=== PATIENT | female | born 1970 | race Caucasian/White ===

== ENCOUNTER → 2017-10-11 12:02 | Outpatient (CLI) | payer OTHER, SELFPAY ==
--- NOTE | 2017-10-10 14:40 | FLU_PTH ---
PATIENT: BALWINDER GERBER LOC: [facility] U#:[id number] AGE/SX: 54/F ROOM: RE10/11/[address]: Dr. Ricarda Acuña MD : 1970 BED: DIS: SPEC #: [id number] RECD: 10/11/17 11:56 STATUS: JADE RESanjuana #: [id number] JR: 10/10/17 14:[address]: Ricarda Acuña DEPT: CYTOLOGY RECD BY: Leonard Colon ENTERED: 10/12/17 04:54 SP TYPE: Fluid OTHR DR: Dr. Mohan Dumont MD Tissues: A - Thyroid gland, NOS B - Thyroid gland, NOS Procedures: Pap Stain (control) Special Stain Group II Surgery Specimen Level IV Cell Block Cytospin Fluid Cytology Other HEADER OPERATION: Ultrasound guided fine needle aspiration, left thyroid PRE-OP DIAGNOSIS: Left thyroid nodule TISSUE SUBMITTED: A. FNA left thyroid, fluid, B. FNA left thyroid, slides DIAGNOSIS CYTOLOGY A. Left thyroid nodule, ultrasound guided FNA (Cytospin and cell block): Consistent with benign colloid nodule. B. Left thyroid nodule, ultrasound FNA (Smears): Consistent with benign colloid nodule. See cytology study and comment. BOYD:rodolfo 10/12/17 TC:5 COMMENT Immediate cytologic evaluation to determine adequacy is not applicable. Correlation with clinical, radiologic findings and appropriate followup are necessary. CYTOLOGY STUDY Slides are reviewed. A. Specimen consists of benign follicular cells, colloid and macrophages. B. The specimen is adequate for evaluation. Specimen consists of abundant colloid, benign follicular cells and macrophages. CYTOLOGY GROSS A. Received is 95 ml of cloudy suman fluid labeled with the patient's name and and designated per the requisition as FNA left thyroid. Submitted for cytology preparation including cell block. B. Received are 8 smears labeled with the patient's name and designated per the requisition as FNA left thyroid. Submitted for staining. /RB:kristen 10/11/17 TC: 5 CPT: 57380, 56489, 56297
== END ==
PROVIDERS: Family Provider Family Medicine; PCP Family Medicine; Visit Provider Surgery
DX: E04.1 Nontoxic single thyroid nodule (principal)
CPT/HCPCS: 88108; 88161; 88305; 88313

== ENCOUNTER 2018-09-04 14:35 | Observation (INO) | payer OTHER, SELFPAY ==
--- NOTE | 2018-08-23 19:04 | HP.PCM_ITS ---
History and Physical Date of Admission: 09/04/18 Mariia Gómez 1970 ? REFERRING PHYSICIAN: Mohan Dumont MD ? CHIEF COMPLAINT: Consult (New patient - referred by Dr. Borges for thyroid nodule) ? HPI: The patient is a 47 y/o WF who presents with increasing size of thyroid nodule. Had been seen previously by me, noted to have a 3.4 cm left thyroid nodule for which FNA was done revealing benign colloid nodule. She now is also noting globus sensation and thyroid nodule is visibly larger. US reveals that the left thyroid nodule has increased in size by about 12%. In the past, had normal TSH, microsomal antibody normal, T3/T4 normal. ? ? PAST MEDICAL HISTORY ? Anxiety ? ? Other abnormal heart sounds 12/26/02 Murmur ? Other and nonspecific abnormal cytological, histological, immunological and DNA test findings 01/05/03 ? 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 Skin cancer, basal cell 2012 ? PAST SURGICAL HISTORY ? DELIVERY ONLY ? 12/26/02 C- section, low cervical ? EGD ? 07/23/14 ? EGD W/O BRSH SPECIMEN W/BX ? 04/13/07 ? LAPAROSCOPIC CHOLEYCYSTECTOMY ? 08/13/14 ? PAST SURGICAL HISTORY OF ? 12/20 wisdom teeth ? PAST SURGICAL HISTORY OF ? 2012 removal basel cell cancer , abdomen ? ? Current Outpatient Prescriptions: LORazepam (ATIVAN) 0.5 mg tab Take by mouth as needed. acyclovir (ZOVIRAX) 400 mg tablet 1 po tid X 5 days multivitamin tablet Take 1 tablet by mouth once daily. Cetirizine (ZYRTEC) 10 mg cap Take by mouth. ? ? ALLERGIES: Tylenol [Acetaminophen]; Paxil [Paroxetine Hcl]; Prilosec [Omeprazole Magnesium]; Eryc [Erythromycin]; Penicillins ? 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 ? FAMILY HISTORY ? Cancer Mother ?? cervical/Skin ? Aneurysm Mother ? ? melanoma [OTHER] Mother ? ? Coronary Artery Disease Father ? ? Hypertension Father ? ? Cancer Maternal Grandmother ? stomach- with this ? Heart Paternal Grandfather ?? chf ? Heart Maternal Grandfather ? chf ? Hypertension Brother ? ? Cancer Brother Melanoma ? ? REVIEW OF SYSTEMS: General - denies fevers Cardiovascular - denies chest pain Pulmonary - denies shortness of breath, denies coughing up blood Gastrointestinal - denies abdominal pain, denies emesis of blood Neurological - denies seizures, tingling of right upper extremity occasionally Genitourinary - denies blood in urine Hematological - denies spontaneous/prolonged bleeding Skin - denies nonhealing skin wounds Musculoskeletal - denies chronic joint/back pain Endocrine - denies diabetes Psychological ? denies hallucinations ? PHYSICAL EXAMINATION: General: The patient is 46 year old female, well nourished, well hydrated in no acute distress. The patient is oriented to time, place, and person. VITALS: Blood pressure 118/64, pulse 72, resp. rate 16, weight 70.9 kg (156 lb 6.4 oz). Body mass index is 24.84 kg/m?. Head ? Normocephalic. EOM intact with sclera clear and no icterus noted. Mouth with mucus membranes moist. Neck - supple with no jugular venous distention noted. Trachea is midline. No carotid bruits noted. Left thyroid lobe larger than right with noticeable thyroid nodule Lungs ? clear to auscultation.. Normal breath sounds. No rales/rhonchi/wheezing noted. No labored breathing noted, such as retractions. Heart ? normal S1 and S2 auscultated. No rubs/clicks/murmurs noted. Regular rate. Abdomen ? soft and benign. Normal bowel sounds. No abdominal bruits noted. No distention or tympany noted. Extremities ? no calf tenderness noted. No pitting edema noted. Skin ? normal skin integrity. Lymph ? no cervical adenopathy detected, no supraclavicular adenopathy detected, no axillary adenopathy detected Neurological ? gait normal, no focal deficits noted. Psych ? calm and appropriate ? ? IMPRESSION: thyroid nodule - left dominant, globus symptoms ? PLAN: I have discussed the above with the patient. I have discussed options of surgery, I have described the surgery to the patient in layman?s terms. I have counseled the patient as to the risks of surgery, including but not limited to: infection, bleeding, seroma, scar tissue, cosmetic deformity, injury to any blood vessels/nerves, injury to the recurrent laryngeal nerves and their sequelae, injury to the parathyroid glands and their sequelae, bleeding requiring further surgery, need for thyroid hormonal supplementation - life long, etc. ? the patient understands. I have offered options of the following: - US guided FNA of left thyroid nodule - thyroid lobectomy - continued observation Patient wishes to undergo left thyroidectomy. Will schedule for this procedure at [facility] as per patient's wishes.
[2018-08-28 13:15] VITALS: BP 118/66; PULSE 73; RESP 16; TEMP 37.4; O2SAT 99; BMI 25.4
[2018-09-04] VITALS (9 sets, daily range): BP systolic 110–141; BP diastolic 57–71; PULSE 81–106; RESP 14–18; TEMP 36.7–37.2; O2SAT 94–99; BMI 25.4; BMI 25.3
--- NOTE | 2018-09-04 | THYROID_PTH ---
PATIENT: BALWINDER GERBER LOC: [facility] U#:[id number] AGE/SX: 47/F ROOM: MS318 RE09/04/[address]: Dr. Ricarda Acuña MD : 1970 BED: 1 DIS: 09/05/2018 SPEC #: [id number] RECD: 09/05/18 09:30 STATUS: JADE REQ #: [id number] JR: 09/04/18 00:[address]: Ricarda Acuña DEPT: SURGICAL PATHOLOGY RECD BY: Damien Moore ENTERED: 09/05/18 10:30 SP TYPE: THYROID OTHR DR: Dr. Mohan Dumont MD Tissues: Thyroid gland, NOS Procedures: Surgery Specimen Level V HEADER OPERATION: Left thyroid lobectomy and isthmusectomy PRE-OP DIAGNOSIS: Left thyroid nodule TISSUE SUBMITTED: Left thyroid and isthmus MICROSCOPIC DIAGNOSIS Left thyroid and isthmus, lobectomy and isthmusectomy: Colloid nodules with focal adenomatous and cystic change. Mild chronic inflammation. AM:jorge 09/06/18 MICROSCOPIC DESCRIPTION Slides are reviewed. GROSS DESCRIPTION Received in fixative is one container labeled with the patient's name and designated left thyroid and isthmus. The specimen consists of three rubbery fragments of light colmenares soft tissue ranging in size from 1.5 to 4 cm. No parathyroid glands are grossly identified. The fragments in aggregate weigh 7.9 gm. No orientation is provided. The two smaller fragments are inked in blue ink and green ink respectively and the largest fragment is inked in black ink. Serial sections of the smaller fragments reveal homogenous reddish-colmenares cut surfaces. No nodules or mass lesions are identified. Serial sections of the largest fragment reveal a cyst measuring 2 x 1 cm. The cyst is lined by smooth, glistening light colmenares tissue. No cyst contents are identified. The uninvolved parenchyma is reddish-colmenares in color and free of nodules or masses. The specimen is totally submitted in seven cassettes as follows: 1 - smaller fragments of tissue, 2-7 - largest fragment. / AM:jorge 09/05/18 TC:1 CPT: 61734 ADDENDUM ADDENDUM 09/21/2018 10:10 ADDENDUM 09/21/2018 10:10 ADDENDUM 09/21/2018 10:10 ADDENDUM 09/21/2018 10:10 ADDENDUM 09/21/2018 10:10 Benign parathyroid tissue is present, focally. / AM:jorge 09/21/18
[2018-09-04 14:26] LABS: Internal QC Validated? YES +Cl - CLEAR BKGD; Pregnancy, Urine Negative Negative
--- NOTE | 2018-09-04 16:53 | OP.PCM_ITS ---
Report of Operation Date of Procedure: 09/04/18 Pre-Operative Diagnosis: globus symptoms, left thyroid nodule Post-Operative Diagnosis: globus symptoms, left thyroid nodule Surgery/Procedure Performed:: Left thyroid lobectomy and isthmusectomy Description of Surgical Findings:: multinodular goiter - left thyroid microfilming document preparer: Darrel Jackson Type of Anesthesia:: General Anesthesiologist: Prashanth Cagle Specimen's removed: left thyroid and isthmus Drains: none Estimated Blood Loss (mL): < 10 Fluids Replaced: 1000 ml RL Description of Procedure: After informed consent was obtained, the patient was brought to the Operating Room. Appropriate time out protocol was followed. She was then placed in the supine position. She was then placed under GETA. The patient was then positioned with arms tucked and appropriate padding, with neck extension, and in the slightly reverse Trendelenburg position. The neck and upper chest were then prepped with a sterile surgical skin preparation and appropriate sterile surgical drapes were placed. The ultrasound was used to localize the left thyroid nodule so that an appopriate thyroid incision can be made. The skin and subcutaneous tissues were infiltrated with local anesthetic. The landmarks were identified and a low cervical collar incision was made with a 15 blade scalpel and carried down to the subcutaneous tissues using Bovie in the electrocautery mode. The platysma was divided along the incision and then flaps were created superiorly to the cricoid cartilage level and inferiorly to the sternal notch. The fascia overlying the strap muscles was then divided along the midline. The left thyroid gland was thus approached. The plane between the thyroid gland anterior and the strap muscles posteriorly was then bluntly dissected. There was some filmy adhesions around the thyroid gland. Dissection continued layer by layer to identify the inferior pole vessels of the left thyroid gland. The vessels were ligated with ligaclips and then transected. Of note, the left thyroid gland was very much enlarged and was nodular. The middle thyroid vein was identified and also ligated with ligaclips and then transected. The inferior pole was then bluntly dissected free and the surrounding investiture. The left lobe of the thyroid thus could be retracted medially. Attention was then directed to the superior pole of the thyroid gland. The superior pole vessels were then ligated adjacent to the thyroid lobe in order to prevent damage to the superior laryngeal nerve. The parathyroid gland was identified and care was taken to preserve the blood supply to the parathyroid gland. The thyroid gland was appearing ischemic and shrunk in size and the gland could be further retracted medially. The recurrent laryngeal nerve was identified. Because of the size of the thyroid gland, the nerve was almost embedded within it and careful dissection was required to prevent any injury to it. It is of note that the thyroid appeared to have slight inflammation consistent with thyroiditis type presentation. Also was noted that the surrounding tissues appeared to be more adherent to the thyroid gland than usual. Once the thyroid tissue was free from the attachments to the trachea wit h the recurrent laryngeal nerve protected and dissection continued. There was a small tongue of thyroid tissue extended superior along the trachea and this was resected en lila with the left thyroid gland. The thyroid gland was carefully examined, no active bleeding was noted, Surgicel was used for hemostasis. The fascia of the strap muscles was then reapproximated along the midline with running vicryl suture with a small opening made inferiorly. The platysma muscle was then reapproximated in a transverse fashion using interrupted 2-0 Vicryl suture. The skin incision was then reapproximated using 4-0 Monocryl in a running subcuticular fashion. The skin closure was reinforced with Dermibond and a sterile dressing was applied. She was brought to the Recovery Room in stable condition. - Complications none noted - Admit VTE Documentation VTE Present on Admission: Yes VTE Mechan Device Prophylaxis: SCD's
[2018-09-04] MEDS: 0.9% NaCl Peripheral Flush Adult/Peds IV (19:47)
[2018-09-04] MEDS: Ibuprofen 600 MG Tablet PO (19:47)
[2018-09-04] MEDS: LORazepam 0.5 MG Tablet PO (22:00)
[2018-09-05 02:41] VITALS: BP 111/53; PULSE 106; RESP 16; TEMP 37.3; O2SAT 97
[2018-09-05] MEDS: Ibuprofen 600 MG Tablet PO ×2 (02:42→09:32)
[2018-09-05] MEDS: Lactated Ringers 1,000 ML 75 ML IV (02:46)
[2018-09-05 03:03] VITALS: PULSE 106
[2018-09-05 06:57] LABS: Calcium,Total 8.1 mg/dL (8.5-10.1)
--- NOTE | 2018-09-05 07:10 | PCM.DC.GS ---
Discharge Diet: No Restrictions Discharge Activity: Return to Normal Activity, May not drive while taking narcotic pain medications. Call your doctor if your incision/area has: Continuous Slow Oozing, Foul Smelling Discharge Call your doctor if you observe: Fever of 101 or Higher Additional Dressing/Incision Instructions:: Leave dressing in place. Do not get wet Additional Instructions: take TUMS with calcium - two tablets twice a day (four total per day) until further notice Allergies/Adverse Reactions: Allergies acetaminophen [From Tylenol] Allergy (Verified 09/04/18 12:24) Anaphylaxis erythromycin base [Erythromycin Base] Allergy (Verified 09/04/18 12:24) Rash paroxetine HCl [From Paxil] Allergy (Verified 09/04/18 12:24) Other Penicillins Allergy (Verified 09/04/18 12:24) Rash Medications to take at Discharge Cetirizine HCl [Zyrtec] 5 mg PO DAILY 09/02/13 Multivitamin with Iron [Multivitamins with Iron] 1 each PO DAILY 09/02/13 Daily Defense Cpasule 1 cap PO DAILY 08/28/18 L.acidoph,Paracasei, B.lactis [Probiotic] 1 each PO DAILY 08/28/18 Lorazepam [Ativan] 0.5 mg PO BID PRN PRN 08/28/18 Zyflamend Whole Body Cap 1 cap PO DAILY 08/28/18 Oxycodone [Oxyir] 5 mg PO Q8H PRN PRN 2 Days #5 tab 09/05/18 The following prescriptions were given: Oxycodone [Oxyir] 5 mg PO Q8H PRN PRN 2 Days #5 tab PRN Reason: Mod-Severe Pain (4-01/25) Primary Care Physician: Mohan Dumont MD [Primary Care Provider] - Test Results: Test results from this visit will be discussed in further detail at your follow-up appointment, if applicable. Please Follow Up With: Ricarda Acuña MD - call When: to be seen on Tuesday, please call for time, thank you
--- NOTE | 2018-09-05 07:13 | DCINST_ITS ---
Discharge Diet: No Restrictions Discharge Activity: Return to Normal Activity, May not drive while taking narcotic pain medications. Call your doctor if your incision/area has: Continuous Slow Oozing, Foul Smelling Discharge Call your doctor if you observe: Fever of 101 or Higher Additional Dressing/Incision Instructions:: Leave dressing in place. Do not get wet Additional Instructions: take TUMS with calcium - two tablets twice a day (four total per day) until further notice Allergies/Adverse Reactions: Allergies acetaminophen [From Tylenol] Allergy (Verified 09/04/18 12:24) Anaphylaxis erythromycin base [Erythromycin Base] Allergy (Verified 09/04/18 12:24) Rash paroxetine HCl [From Paxil] Allergy (Verified 09/04/18 12:24) Other Penicillins Allergy (Verified 09/04/18 12:24) Rash Medications to take at Discharge Cetirizine HCl [Zyrtec] 5 mg PO DAILY 09/02/13 Multivitamin with Iron [Multivitamins with Iron] 1 each PO DAILY 09/02/13 Daily Defense Cpasule 1 cap PO DAILY 08/28/18 L.acidoph,Paracasei, B.lactis [Probiotic] 1 each PO DAILY 08/28/18 Lorazepam [Ativan] 0.5 mg PO BID PRN PRN 08/28/18 Zyflamend Whole Body Cap 1 cap PO DAILY 08/28/18 Oxycodone [Oxyir] 5 mg PO Q8H PRN PRN 2 Days #5 tab 09/05/18 The following prescriptions were given: Oxycodone [Oxyir] 5 mg PO Q8H PRN PRN 2 Days #5 tab PRN Reason: Mod-Severe Pain (4-01/25) Primary Care Physician: Mohan Dumont MD [Primary Care Provider] - Test Results: Test results from this visit will be discussed in further detail at your follow- up appointment, if applicable. Please Follow Up With: Ricarda Acuña MD - call When: to be seen on Tuesday, please call for time, thank you
[2018-09-05 07:50] VITALS: BP 108/69; PULSE 80; RESP 16; TEMP 37.5; O2SAT 96
[2018-09-05 07:55] VITALS: PULSE 80
--- NOTE | 2018-09-05 08:54 | PCM.PN.SRG ---
Subjective: Patient feeling well this morning, complains of sore throat, denies swallowing problems, able to phonate all vowel sounds normally, does not feel or sound hoarse - Physical Exam General: Alert, Oriented x3 HEENT: Atraumatic Oral: Moist Mucosa Neck: Supple, - - dressing intact - no seepage noted Lungs: Normal air movement Vital Signs Temp Pulse Resp BP Pulse Ox 99.5 F H 80 16 108/69 96 09/05/18 07:50 09/05/18 07:50 09/05/18 07:50 09/05/18 07:50 09/05/18 07:50 Oxygen Delivery Method Room Air Weight: 71.214 kg Body Mass Index (BMI) 25.3 Intake and Output for Last 24 Hours 09/03/18 09/04/18 09/05/18 23:59 23:59 23:59 Intake Total 1400 / 1400 1855 / 1855 Output Total 550 / 550 Balance 1400 / 1400 1305 / 1305 Laboratory Tests Past 24 Hrs 09/04/18 09/05/18 14:21 06:24 Calcium 8.1 L Urine Test Negative Medical Necessity - Tobacco Use Smoking Status: Never smoker Assessment/Plan POD#1 s/p left thyroid lobectomy and isthmusectomy Plan: d/c to home low calcium 8.1, will have patient start taking TUMS with calcium
[2018-09-05 11:07] VITALS: BP 119/70; PULSE 83; RESP 18; TEMP 37.8; O2SAT 95
== END 2018-09-05 11:52 | disposition home or self-care (01) ==
LOC: MS3 09-05 08:25
PROVIDERS: Anesthesiology; Admitting Provider Surgery; Family Provider Family Medicine; PCP Family Medicine; Referring Provider Surgery; Visit Provider Surgery
PROC: (CPT 60225; principal; 2018-09-04 13:15)
DX: E04.2 Nontoxic multinodular goiter (principal); F41.9 Anxiety disorder, unspecified; Z79.899 Other long term (current) drug therapy; F45.8 Other somatoform disorders
CPT/HCPCS: 00320; 60225; 36415; 81025; 82310; 88307; 96360; 96361; 99218; J7120; A4216; G0378; G0379; J2405

== ENCOUNTER → 2019-03-01 17:09 | Outpatient (CLI) | payer OTHER, SELFPAY ==
[2018-09-04 17:52] VITALS: BMI 25.3
== END ==
PROVIDERS: Family Provider Family Medicine; PCP Family Medicine; Referring Provider Chiropractor; Visit Provider Chiropractor
DX: M54.12 Radiculopathy, cervical region (principal); M99.01 Segmental and somatic dysfunction of cervical region
CPT/HCPCS: 72040

== ENCOUNTER → 2019-04-16 07:38 | Outpatient (CLI) | payer OTHER, SELFPAY ==
[2019-03-08 10:36] VITALS: BMI 25.0
[2019-04-16 10:33] LABS: Anion Gap 5 (5-15); BUN 10 mg/dL (7-18); BUN/Creat Ratio 9.1 RATIO (10-20); Calcium,Total 8.4 mg/dL (8.5-10.1); Chloride 113 mmol/L (98-107); EST Glomerular Filtration Rate 57 mL/min (>60); Est Glom Filt Rate - Afr Amer 68 mL/min (>60); Glucose 93 mg/dL (74-106); Potassium 5.1 mmol/L (3.5-5.1); Sodium Level 141 mmol/L (136-145)
[2019-04-23 14:34] LABS: Aldosterone, Serum 11.8 ng/dL (0.0-30.0); Renin, Plasma < 0.167 ng/mL/hr (0.167-5.380)
== END ==
PROVIDERS: Family Provider Family Medicine; PCP Family Medicine; Referring Provider Internal Medicine Endocrinology, Diabetes & Metabolism; Visit Provider Internal Medicine Endocrinology, Diabetes & Metabolism
DX: E78.5 Hyperlipidemia, unspecified (principal)
CPT/HCPCS: 36415; 80048; 82088; 82533; 84244

== ENCOUNTER → 2019-05-10 16:20 | Outpatient (CLI) | payer OTHER, SELFPAY ==
[2019-04-24 13:27] VITALS: BMI 25.0
[2019-05-10 17:05] LABS: Urine Sodium 122 mmol/L (Not Establ.)
== END ==
PROVIDERS: PCP Family Medicine; Visit Provider Internal Medicine Nephrology
DX: E87.5 Hyperkalemia (principal)
CPT/HCPCS: 84133; 84300

== ENCOUNTER → 2019-05-25 07:51 | Outpatient (CLI) | payer OTHER, SELFPAY ==
[2019-04-24 13:27] VITALS: BMI 25.0
[2019-05-25 08:01] VITALS: BP 126/72; PULSE 82; RESP 18; TEMP 36.5; O2SAT 97; BMI 25.8
[2019-05-25] MEDS: Cosyntropin 0.25 MG Vial IV (08:18)
== END ==
PROVIDERS: PCP Family Medicine; Referring Provider Internal Medicine Nephrology; Visit Provider Internal Medicine Nephrology
DX: E87.5 Hyperkalemia (principal)
CPT/HCPCS: 96374; 82533; A4216; J0834

== ENCOUNTER → 2019-05-31 13:18 | Outpatient (CLI) | payer OTHER, SELFPAY ==
[2019-04-24 13:27] VITALS: BMI 25.0
[2019-05-25 08:01] VITALS: BMI 25.8
[2019-05-31 14:53] LABS: Albumin, Serum 3.6 g/dL (3.2-5.0); BUN 11 mg/dL (7-18); BUN/Creat Ratio 11.4 RATIO (10-20); Calcium,Total 8.6 mg/dL (8.5-10.1); Chloride 111 mmol/L (98-107); Creatinine, Serum 0.96 mg/dL (0.55-1.02); EST Glomerular Filtration Rate 66 mL/min (>60); Est Glom Filt Rate - Afr Amer 80 mL/min (>60); Glucose 83 mg/dL (74-106); Phosphorus 2.9 mg/dL (2.5-4.9); Potassium 4.3 mmol/L (3.5-5.1); Sodium Level 142 mmol/L (136-145)
[2019-06-01 13:46] LABS: ANTINUCLEAR ANTIBODIES DIRECT Negative (Negative)
== END ==
PROVIDERS: PCP Family Medicine; Referring Provider Internal Medicine Nephrology; Visit Provider Internal Medicine Nephrology
DX: E78.5 Hyperlipidemia, unspecified (principal)
CPT/HCPCS: 36415; 80069; 86038

== ENCOUNTER → 2019-08-24 14:03 | Outpatient (CLI) | payer OTHER, SELFPAY ==
[2019-06-08 14:34] VITALS: BMI 27.3
[2019-08-24 15:50] LABS: Albumin, Serum 3.5 g/dL (3.2-5.0); BUN 8 mg/dL (7-18); BUN/Creat Ratio 8.7 RATIO (10-20); Calcium,Total 8.2 mg/dL (8.5-10.1); Chloride 110 mmol/L (98-107); Creatinine, Serum 0.92 mg/dL (0.55-1.02); EST Glomerular Filtration Rate 70 mL/min (>60); Est Glom Filt Rate - Afr Amer 84 mL/min (>60); Glucose 92 mg/dL (74-106); Potassium 5.3 mmol/L (3.5-5.1); Sodium Level 140 mmol/L (136-145)
[2019-08-24 16:29] LABS: Thyroid Stim Hormone (TSH) 0.46 uIU/mL (0.358-3.74)
== END ==
PROVIDERS: Internal Medicine Endocrinology, Diabetes & Metabolism; PCP Family Medicine; Referring Provider Internal Medicine Nephrology; Visit Provider Internal Medicine Nephrology
DX: E89.0 Postprocedural hypothyroidism (principal); E87.5 Hyperkalemia
CPT/HCPCS: 36415; 80069; 84443

== ENCOUNTER → 2020-10-29 08:28 | Outpatient (CLI) | payer OTHER, SELFPAY ==
[2019-06-08 14:34] VITALS: BMI 27.3
[2020-10-29 09:32] LABS: Albumin, Serum 3.8 g/dL (3.2-5.0); BUN 13 mg/dL (7-18); BUN/Creat Ratio 11.9 RATIO (10-20); Calcium,Total 8.7 mg/dL (8.5-10.1); Chloride 109 mmol/L (98-107); Creatinine, Serum 1.09 mg/dL (0.55-1.02); EST Glomerular Filtration Rate 57 mL/min (>60); Est Glom Filt Rate - Afr Amer 69 mL/min (>60); Glucose 106 mg/dL (74-106); Phosphorus 2.8 mg/dL (2.5-4.9); Potassium 4.5 mmol/L (3.5-5.1); Sodium Level 139 mmol/L (136-145)
== END ==
PROVIDERS: PCP Family Medicine; Referring Provider Internal Medicine Nephrology; Visit Provider Internal Medicine Nephrology
DX: E87.5 Hyperkalemia (principal)
CPT/HCPCS: 36415; 80069

== ENCOUNTER → 2020-11-11 10:42 | Outpatient (CLI) | payer OTHER, SELFPAY ==
[2019-06-08 14:34] VITALS: BMI 27.3
[2020-11-11 12:54] LABS: Urine Sodium 83 mmol/L (Not Establ.)
[2020-11-11 13:07] LABS: Albumin, Serum 3.5 g/dL (3.2-5.0); BUN 14 mg/dL (7-18); BUN/Creat Ratio 14.5 RATIO (10-20); Calcium,Total 8.5 mg/dL (8.5-10.1); Chloride 109 mmol/L (98-107); Creatinine, Serum 0.96 mg/dL (0.55-1.02); EST Glomerular Filtration Rate 65 mL/min (>60); Est Glom Filt Rate - Afr Amer 79 mL/min (>60); Glucose 90 mg/dL (74-106); Phosphorus 3.2 mg/dL (2.5-4.9); Potassium 5.1 mmol/L (3.5-5.1); Sodium Level 138 mmol/L (136-145)
== END ==
PROVIDERS: PCP Family Medicine; Visit Provider Internal Medicine Nephrology
DX: E87.5 Hyperkalemia (principal)
CPT/HCPCS: 36415; 80069; 84133; 84300

== ENCOUNTER → 2020-11-19 13:03 | Outpatient (CLI) | payer OTHER, SELFPAY ==
[2019-06-08 14:34] VITALS: BMI 27.3
[2020-11-19 14:00] LABS: Potassium 4.7 mmol/L (3.5-5.1)
== END ==
PROVIDERS: PCP Family Medicine; Referring Provider Internal Medicine Nephrology; Visit Provider Internal Medicine Nephrology
DX: E87.5 Hyperkalemia (principal)
CPT/HCPCS: 36415; 84132

== ENCOUNTER 2022-06-16 14:11 | Emergency (ER) | payer OTHER, SELFPAY ==
[2022-06-16 14:11] VITALS: BP 133/81; PULSE 107; RESP 18; TEMP 37; O2SAT 98; BMI 26.3
--- NOTE | 2022-06-16 14:50 | EDS_ITS ---
HPI History of Present Illness Chief Complaint: Neuro S/Sx Informant: patient Narrative Narrative: Patient started having drooping of her right lip today and trouble chewing something as a result. She states her lips feel a little numb knee on the right side as well, she did not notice this until she was chewing something for breakfast this morning. The last time she chewed or ate something and it was normal was yesterday around 1800. She also has noticed today that she is having a lot of tearing in her right eye and trouble closing it. She has no symptoms in her arms or legs. No trouble speaking. No headache. She has had some ringing in her right ear lately and it has been bothering her a little but she did not think anything of it. She has never had this before. She is healthy except for neck pain and some other areas of spinal arthritis symptoms, but she does not have a formal diagnosis of any type of rheumatoid issue or other. She denies any recent illness or injury, but she was put on some prednisone last week for her neck issues, she states she took 2 days of prednisone 40 mg but it made her flushed and made her feel very poorly and she did not continue the prescription for any longer, the last day she took it was about 5 or 6 days ago. [facility] Medical History (Updated 06/16/22 @ 14:[address] Celm Valencia MD) Allergies Back problem Headaches, cluster Heart murmur Hyperthyroidism IBS (irritable bowel syndrome) Melanoma Stomach ulcer Vision problem Home Medications cetirizine 10 mg capsule 5 mg PO DAILY 09/02/13 [History Last Taken Unknown] multivitamin with iron 1 ea PO DAILY 09/02/13 [History Last Taken Unknown] Daily Defense Cpasule 1 cap PO DAILY 08/28/18 [History Last Taken Unknown] L.acidoph, paracasei,B. lactis 10 billion cell capsule 1 ea PO DAILY 08/28/18 [History Last Taken Unknown] lorazepam 0.5 mg tablet 0.5 mg PO BID PRN PRN Anxiety 08/28/18 [History Last Taken 09/04/18 08:30 0.5 MG] collegen PO 03/22/19 [History Last Taken Unknown] levothyroxine 100 mcg tablet 100 mcg PO DAILY #30 tabs 06/08/19 [Rx Last Taken Unknown] valacyclovir 1 gram tablet 1,000 mg PO TID #21 tabs 06/16/22 [Rx Last Taken Unknown] Allergy/AdvReac Type Severity Reaction Status Date / Time acetaminophen [From Tylenol] Allergy Anaphylaxis Verified 06/16/22 14:14 erythromycin base Allergy Rash Verified 06/16/22 14:14 [Erythromycin Base] paroxetine HCl [From Paxil] Allergy Other Verified 06/16/22 14:14 Penicillins Allergy Rash Verified 06/16/22 14:14 Family History Unknown Alcoholism Cervical cancer Father Heart disease Hypertension Hyperlipidemia Mother Ovarian cancer Skin cancer Other Cancer Surgical History H/O oral surgery H/O: History of cholecystectomy Status post removal of thyroid nodule Social History Smoking Status: Never smoker alcohol intake: never substance use type: does not use what type of physical activity do you participate in: walking, aerobics and weight training ROS ROS ED Constitutional Constitutional ED: Denies chills or fever(s) Eyes Eyes: Denies blurry vision, change in vision or diplopia ENT ENT ED: Reports as per HPI, ear pain right and tinnitus; Denies rhinorrhea or sore throat Cardiovascular Cardiovascular: Denies chest pain or palpitations Respiratory/Chest Respiratory/Chest: Denies cough or dyspnea Gastrointestinal Gastrointestinal: Denies abdominal pain, diarrhea, nausea or vomiting Genitourinary Genitourinary ED: Denies dysuria or hematuria Musculoskeletal Musculoskeletal: Denies back pain or neck pain Integumentary Denies abscess or rash Neurologic Neurologic: Denies headache(s), paresthesias or weakness Psychiatric Psychiatric: Denies anxiety or suicidal thoughts EXAM Physical Exam Const Vital Signs: 06/16/22 14:11 Temperature 98.6 F Temperature Source Temporal Pulse Rate 107 H Respiratory Rate 18 Blood Pressure 133/81 H Blood Pressure Mean 98 Pulse Ox 98 Oxygen Delivery Method Room Air Positive well nourished and well developed General Appearance ED: well developed and NAD HEENT Reports moist mucous membranes normocephalic and atraumatic Eyes PERRL and EOMs intact bilaterally Eyes Narrative: Mild right ptosis. Eye exam otherwise normal. Neck full ROM and supple Resp normal respiratory effort Back/Spine no CVA tenderness General Back: other FROM Extremity normal to inspection General Extremety ED: Negative for edema, pulses abnormal or tenderness General Extremity: Negative for edema or pulses abnormal Neuro oriented x3 and no sensory deficits noted Neuro Narrative: Patient has weakness of the right upper eyelid, weakness of the right frontalis muscles compared with the left although both work, she does not have a dense facial droop very mild asymmetry of the right face and lips. This is consistent with a peripheral right 7th nerve early/mild palsy, the rest of her cranial nerve exam is normal. Speech is normal no aphasia or dysarthria. Sensorium / Orientation: awake and alert Motor Exam: strength 5/5 throughout Skin no rashes or lesions noted and no wounds MDM MDM MDM Narrative Medical decision making narrative: Patient has objective asymmetry with frontalis muscle movement. Along with the right ear symptoms, and normal TM, this is all consistent with Jackman's palsy. I do not think she needs any emergent imaging, her blood pressure in the 120s supports this as well as opposed to being an acute ischemic stroke. She did not tolerate prednisone and prefers not to do take that again. We will place her on valacyclovir, and advised close outpatient follow-up we discussed the fact that she likely will end up with a very dry right eye and she will need artificial tears, in addition to a patch for her eye to prevent scratching or damage. Discharge Plan Triage Chief Complaint: Neuro S/Sx ED Provider: Clem Valencia Dx/Rx/DC Orders Clinical Impression: Jackman's palsy Instructions: ED Jackman's Palsy Prescriptions: New valacyclovir 1 gram tablet 1,000 mg PO TID Qty: 21 0RF No Action collegen PO levothyroxine 100 mcg tablet 100 mcg PO DAILY Qty: 30 11RF multivitamin with iron 1 EACH tablet 1 ea PO DAILY cetirizine 10 MG capsule 5 mg PO DAILY lorazepam 0.5 MG tablet 0.5 mg PO BID PRN PRN (Reason: Anxiety) L.acidoph, paracasei,B. lactis 1 EACH capsule 1 ea PO DAILY Daily Defense Cpasule 1 cap PO DAILY Primary Care Provider: Mohan Dumont Referrals: Mohan Dumont MD [Primary Care Provider] - (Follow-up within the next week for reevaluation) Disposition Disposition: Home, Self Care
[2022-06-16 15:05] VITALS: BP 139/84; PULSE 71; RESP 15; O2SAT 98
== END 2022-06-16 15:16 | disposition home or self-care (01) ==
PROVIDERS: Emergency Provider Emergency Medicine; PCP Family Medicine; Visit Provider Emergency Medicine
DX: G51.0 Bell's palsy (principal)
CPT/HCPCS: 99283; A4216

== ENCOUNTER 2022-07-23 08:30 | Outpatient (RCR) | payer OTHER, SELFPAY ==
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
--- NOTE | 2022-11-14 17:39 | HP.PT.NRP ---
Patient Information Patient Information: BALWINDER GERBER was seen in my office for initial evaluation on 07/02/22. The following Plan of Care was established for this patient: POC Established Initial Frequency: 2x /Week Initial Duration: 4 Weeks Anticipated Interventions Patient/Client Instruction: Educate patient on: Condition and Plan of Care For the Purpose of:: To decrease pain, To increase ROM, To increase oxygenation perfusion, To improve ability to perform ADL's, To increase tolerance to activity/condition/position, To improve ability of physical actions for home/community/work/leisure, To improve health of tissue, To decrease soft tissue restriction and To increase flexibility/ROM Therapeutic Exercise to Include: Strength training, Postural training, Flexibilty training and Active ROM For the Purpose of:: To decrease pain, To increase ROM, To improve muscle performance and motor function, To increase tolerance to activity/condition/position, To improve ability of physical actions for home/community/work/leisure, To improve health of tissue, To decrease soft tissue restriction and To increase flexibility/ROM Manual Therapy Techniques to Include: Mobilization and Soft tissue mobilization Comment: CERVICAL TRACTION/STM For the Purpose of:: To decrease pain, To increase ROM, To improve nutrient delivery to tissue, To increase oxygenation perfusion, To improve health of tissue and To decrease soft tissue restriction TENS: Yes IF ES: Yes Cryotherapy (ice pack, ice massage): Yes Thermo therapy (hot pack): Yes Ultrasound (thermal/non thermal): Yes For the Purpose of:: To decrease pain, To increase ROM, To improve nutrient delivery to tissue, To increase oxygenation perfusion, To improve health of tissue and To decrease soft tissue restriction Last Seen Last Seen: This patient was last seen in our office . Pertinent comments regarding their Physical therapy will appear below: Patient seen for cervical pain for HEP and postural ex's d/c At this point I will be discontinuing this patient from physical therapy. I would be happy to see this patient again in the future if found appropriate by the physician. Thank you! Shakir Morfin, PT, Cert MDT, OCS Balance/Gait/Functional tests Balance/Special Test Scores Oswestry Neck Score: 3
== END 2022-07-23 19:00 | disposition home or self-care (01) ==
LOC: PT 08:30
PROVIDERS: PCP Family Medicine; Referring Provider Chiropractor; Visit Provider Chiropractor
DX: M99.01 Segmental and somatic dysfunction of cervical region (principal); M99.02 Segmental and somatic dysfunction of thoracic region; M54.12 Radiculopathy, cervical region
CPT/HCPCS: 97110; 97140; 97162

== ENCOUNTER → 2024-11-30 | Outpatient (CLI) | payer OTHER, SELFPAY ==
--- NOTE | 2024-11-30 16:57 | MRI_ITS ---
PROCEDURE: SPINE CERVICAL (ROUTINE) 11/30/2024 REASON FOR EXAM: WORSENING RADICULOPATHY, RIGHT TRICEP WEAKNESS TECHNIQUE: SPINE CERVICAL (ROUTINE) Multiplanar and multisequence images were obtained without IV contrast administration. COMPARISON: Cervical spine x-ray 11/08/2024. FINDINGS: Vertebrae: Cervical vertebral body heights are preserved. Bone marrow signal is unremarkable. Alignment: Normal. No spondylolisthesis. Spinal Cord: Cervical spinal cord is of normal size and signal intensities. Structures at the foramen magnum are unremarkable. C2-3: Unremarkable C3-4: Disc osteophyte complex. Mild canal stenosis. No significant foraminal stenosis. C4-5: Disc osteophyte complex measures 2 mm. Uncovertebral hypertrophy. Mild canal stenosis. No significant foraminal stenosis. C5-6: Disc osteophyte complex. Uncovertebral hypertrophy. Moderate left and mild right foramina stenosis. Mild canal stenosis. C6-7: Disc osteophyte complex. Uncovertebral hypertrophy. Severe right and moderate left foramina stenosis. Mild canal stenosis. C7-T1: Unremarkable MRI/Spine Cervical (Routine) IMPRESSION: Moderate left foramina stenosis at C5-C6. Severe right and moderate left foramina stenosis at C6-C7. Mild canal stenosis C3 through C7. Reading Location: [id number]
== END | disposition home or self-care (01) ==
LOC: MRI 16:49
PROVIDERS: PCP Family Medicine; Referring Provider Student in an Organized Health Care Education/Training Program; Visit Provider Student in an Organized Health Care Education/Training Program
DX: G95.9 Disease of spinal cord, unspecified (principal)
CPT/HCPCS: 72141

== ENCOUNTER 2024-12-13 15:00 | Outpatient (RCR) | payer OTHER, SELFPAY ==
--- NOTE | 2024-11-20 09:01 | HP.PTEVAL_ITS ---
Patient's Visit Information Visit Information Visit Information: BALWINDER GERBER is a 53 year old F referred to Physical Therapy by KENNEDY Tovar with a diagnosis of Cervical and Right Shoulder. Date of Evaluation: 11/20/24 Physical Therapist: Kenia Orr DPT Visit Plan Frequency: 2x /Week Duration: 4 Weeks Plan: Postural correction- scapular strength/stabilization- manual traction with possibility of progression to mechanical traction HEP Given IE: Posture, Scap Retraction, Chin Tucks supine and seated Subjective Subjective: Pt reports that she has an issue with the ring finger on her right hand- then her back got really tight- then shooting pains down the right arm- flares up on/off but this is the first time its gone down the arm. She tried motrin and ice and finally went to urgent care- they gave her muscle relaxer and predisone. October 29 she went to her PCP- she was prescribed gabapentin which helped- then she started seeing Dr. Whitely who sent her to see the surgeon- who did x-rays and she has an MRI on the [address] Whitley is doing ultrasound and TENS and some massage. When it started it was hard to get her hand to write Agg: riding in the car, typing, writing, reaching above her head, getting cold and tensing up, or getting nervous. Eases: laying down- normally the best position is walking around. She has limited range of motion in the shoulder for about a year. Right hand dominate. Last time she saw Dr. Whitley was yesterday and she sees her 2x a week. She wakes up with headaches- it starts in the occiput and shoots over top and ends in the eyes- its really hard to focus on things. 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 She knows her posture is really bad- if she tries to fix it- it flares up into a headache. She has had therapy prior and it did help. Sleep: use to wake her up- she takes gabapentin before she goes to bed- Objective Objective: Posture: very guarded- forward head, rounded shoulders- can correct with verbal cues Palpation: tender along paraspinals of the thoracic spine- cervical spine- occiput and upper trap to the AC joint, bicipital groove ROM: WNL in all planes of the cervical spine with pain at end range flexion and left rotation and side bending. Shoulder: WNL with pain at end range flexion and IR behind the back Strength: Scap: poor, Shoulder: 4/5 throughout, Elbow: 4/5, Wrist: 4/5, Scientific Manager: 35 lbs Sensation: WNL to gross touch Special Test: distraction: decreased s/s Balance/Special Test Scores Oswestry Neck Score: 23 Goals Goal 1:: Patient will be I with HEP and progression Goal Time Frame: 4-6 Weeks Goal 2:: Patient will maintain proper posture t/o tx session to demo increased scap s/s Goal Time Frame: 4-6 Weeks Goal 3:: Patient will report no dural s/s for 1 week Goal Time Frame: 4-6 Weeks Goal 4:: Patient will report 80% improvement Goal Time Frame: 4-6 Weeks Rehabilitation Potential Physical Therapy Diagnosis: Patient presents with hypomobility- she has decreased scapular strength/stabilization and muscular endurance leading to poor posture and increased pain with ADL's. Rehabilitation Potential: Good Anticipated Interventions Patient/Client Instruction: Educate patient on: Benefits of Fitness Program Therapeutic Exercise to Include: Strength training, Endurance training, Agility training, Body mechanics, Postural training, Flexibilty training, Gait and locomotor training, Neuromotor development, Passive ROM, Active ROM, Dynamic Lumbar Stabilization, Mercedez Exercises and Scapular Strength/Stabilization For the Purpose of:: To improve muscle performance and motor function Manual Therapy Techniques to Include: Soft tissue mobilization TENS: Yes Cryotherapy (ice pack, ice massage): Yes Thermo therapy (hot pack): Yes Ultrasound (thermal/non thermal): Yes Intermittent cervical traction: Yes Text: Thank you for the opportunity to evaluate your patient. For Medicare and Medicare HMO plans, please review the plan of care and approve it. It will need to be FAXED BACK to us at [phone] for Medicare purposes. For Medicare only, by signing this I certify the plan of care. Please let me know if there are questions or concerns regarding this plan of care. Physician Signature: Date:
--- NOTE | 2025-05-02 10:40 | HP.PT.NRP ---
Patient Information Patient Information: BALWINDER GERBER was seen in my office for initial evaluation on 11/20/24. The following Plan of Care was established for this patient: POC Established Initial Frequency: 2x /Week Initial Duration: 4 Weeks Anticipated Interventions Patient/Client Instruction: Educate patient on: Benefits of Fitness Program Therapeutic Exercise to Include: Strength training, Endurance training, Agility training, Body mechanics, Postural training, Flexibilty training, Gait and locomotor training, Neuromotor development, Passive ROM, Active ROM, Dynamic Lumbar Stabilization, Mercedez Exercises and Scapular Strength/Stabilization For the Purpose of:: To improve muscle performance and motor function Manual Therapy Techniques to Include: Soft tissue mobilization TENS: Yes Cryotherapy (ice pack, ice massage): Yes Thermo therapy (hot pack): Yes Ultrasound (thermal/non thermal): Yes Intermittent cervical traction: Yes Last Seen Last Seen: This patient was last seen in our office . Pertinent comments regarding their Physical therapy will appear below: Pt was to have injections and return to MD for further evaluation- appropriate to be d/c at this time. At this point I will be discontinuing this patient from physical therapy. I would be happy to see this patient again in the future if found appropriate by the physician. Thank you! Kenia Orr, SELENAT Balance/Gait/Functional tests Balance/Special Test Scores Oswestry Neck Score: 23
== END 2024-12-13 19:00 | disposition home or self-care (01) ==
LOC: PT 15:00
PROVIDERS: PCP Family Medicine; Referring Provider Student in an Organized Health Care Education/Training Program; Visit Provider Student in an Organized Health Care Education/Training Program
DX: M25.511 Pain in right shoulder (principal); M54.12 Radiculopathy, cervical region; M54.2 Cervicalgia
CPT/HCPCS: 97110; 97140; 97162